=== PATIENT | female | born 1995 | race Two or more races ===

== ENCOUNTER 2018-11-27 13:39 | Inpatient (IN) | payer MEDICAID | END 2018-11-30 15:32 | disposition left against medical advice (07) | LOC: ER 13:39 → OVERFLOW 21:19 → CENTRAL 22:46 | DX: K80.20 Calculus of gallbladder without cholecystitis without obstruction (principal); E66.01 Morbid (severe) obesity due to excess calories; E87.6 Hypokalemia ==